=== PATIENT | female | born 1995 | race Caucasian/White ===

== ENCOUNTER → 2022-08-06 | Outpatient (CLI) | payer MEDICAID, SELFPAY ==
[2022-08-06 10:44] LABS: Absolute Lymphocyte Count 1.27 X10^3/uL (0.83-4.51); Absolute Neutrophil Count 7.4 X10^3/uL (2.0-7.7); Basophil# 0.05 X10^3/uL; Basophil% 0.5 % (0-1); Eosinophil# 0.05 X10^3/uL; Eosinophils% 0.5 % (0-5); Hematocrit 38.9 % (37-47); Hemoglobin 13.5 g/dL (12.0-15.0); Lymphocyte # 1.27 X10^3/ul (0.83-4.51); Lymphocyte % 13.5 % (19-41); Mean Corp Hgb Conc 34.7 g/dL (32-36); Mean Corpuscular Hgb 32.1 pg (27.0-32.0); Mean Corpuscular Volume 92.4 fL (81-99); Mean Platelet Vol. 9.6 fl (6.2-12.0); Monocyte# 0.63 X10^3/uL; Monocyte% 6.7 % (0-10); NRBC Flagged by Analyzer 0 % (0-5); Neutrophil # 7.39 X10^3/uL (2.7-7.7); Neutrophil % 78.4 % (47-70); Platelet Count 226 K/mm3 (150-450); RBC Distribution Width CV 13.2 % (11.6-14.6); Red Blood Count 4.21 M/mm3 (4.2-5.4); White Blood Count 9.4 K/mm3 (4.4-11.0)
[2022-08-06 11:34] LABS: NATERA MAILED SPECIMEN
[2022-08-06 12:02] LABS: HIV - WCH Non-Reactive (Nonreactive); Hepatitis B Surface Antigen Non-Reactive (Nonreactive); Hepatitis C Antibody Non-Reactive (Nonreactive); Rubella IgG Reactive (Nonreactive); Syphilis Antibodies Non-reactive
[2022-08-09 06:07] LABS: Chlamydia By Nucleic Acid AMP Negative (Negative)
[2022-08-10 14:21] LABS: Gonococcus By Nucleic Acid AMP Negative (Negative)
[2022-08-14 16:30] LABS: HPV Reflexed? NOT INDICATED
== END | disposition home or self-care (01) ==
PROVIDERS: PCP Family Medicine; Referring Provider Obstetrics & Gynecology; Visit Provider Obstetrics & Gynecology
DX: O09.90 Supervision of high risk pregnancy, unspecified, unspecified trimester (principal)
CPT/HCPCS: 36415; 85025; 86703; 86762; 86780; 86803; 86850; 86900; 86901; 87086; 87088; 87340; 87491; 87591; 88175; G0145

== ENCOUNTER 2022-08-23 12:15 | Emergency (ER) | payer MEDICAID, SELFPAY ==
[2022-08-23 12:16] VITALS: BP 141/74; PULSE 86; RESP 16; TEMP 36.7; O2SAT 100; BMI 28.3
[2022-08-23 12:45] LABS: Absolute Lymphocyte Count 1.39 X10^3/uL (0.83-4.51); Absolute Neutrophil Count 7.6 X10^3/uL (2.0-7.7); Basophil# 0.05 X10^3/uL; Basophil% 0.5 % (0-1); Eosinophil# 0.08 X10^3/uL; Eosinophils% 0.8 % (0-5); Hematocrit 39.8 % (37-47); Hemoglobin 13.2 g/dL (12.0-15.0); Lymphocyte # 1.39 X10^3/ul (0.83-4.51); Lymphocyte % 14.2 % (19-41); Mean Corp Hgb Conc 33.2 g/dL (32-36); Mean Corpuscular Hgb 31.2 pg (27.0-32.0); Mean Corpuscular Volume 94.1 fL (81-99); Mean Platelet Vol. 9.6 fl (6.2-12.0); Monocyte# 0.61 X10^3/uL; Monocyte% 6.2 % (0-10); NRBC Flagged by Analyzer 0 % (0-5); Neutrophil # 7.64 X10^3/uL (2.7-7.7); Neutrophil % 77.8 % (47-70); Platelet Count 218 K/mm3 (150-450); RBC Distribution Width CV 13.2 % (11.6-14.6); RBC Distribution Width SD 45.4 fl (35.1-43.9); Red Blood Count 4.23 M/mm3 (4.2-5.4); White Blood Count 9.8 K/mm3 (4.4-11.0)
[2022-08-23 12:46] LABS: Mucous, Urine 0 SEEN /hpf (<or=2+)
[2022-08-23 12:49] LABS: Color, Urine Yellow (Yellow); Glucose, Dipstick Normal (Normal); Ketone-Dipstick Negative (Negative); Leukocyte Esterase-Dipstick 100 /ul (Negative); Nitrite-Dipstick Negative (Negative); Occult Blood-Urine 150 /ul (Negative); Protein-Dipstick Negative (Negative); Specific Gravity, Urine 1.025 (1.002-1.030); Urine Bilirubin Dipstick Negative (Negative); Urine Clarity Clear (Clear); Urine Urobilinogen Normal (Normal)
[2022-08-23 12:55] LABS: International Normalized Ratio 1.1; Prothrombin Time (Protime)PT. 13.5 SECONDS (11.7-14.9)
[2022-08-23 12:56] LABS: Partial Thromboplast Time 27.6 Seconds (24.1-36.2)
[2022-08-23 13:00] LABS: ALB/GLOB Ratio 0.8 RATIO (0.9-2.4); AST(SGOT) 7 U/L (15-37); Alanine Aminotransfer ALT/SGPT 21 U/L (13-56); Albumin, Serum 3.1 g/dL (3.2-5.0); Alkaline Phosphatase 60 U/L (45-117); Anion Gap 5 (5-15); BUN 9 mg/dL (7-18); BUN/Creat Ratio 13.4 RATIO (10-20); Calcium,Total 8.7 mg/dL (8.5-10.1); Chloride 108 mmol/L (98-107); Creatinine, Serum 0.67 mg/dL (0.55-1.02); EST Glomerular Filtration Rate 113 mL/min (>60); Est Glom Filt Rate - Afr Amer 137 mL/min (>60); Estimated Creatinine Clearance 106.18 ml/min; Globulin 3.7 g/dL (2.2-4.2); Glucose 95 mg/dL (74-106); Potassium 3.6 mmol/L (3.5-5.1); Protein, Total 6.8 g/dL (6.4-8.2); Sodium Level 137 mmol/L (136-145)
[2022-08-23 13:01] LABS: White Blood Cells 0-5 SEEN /hpf (0-5)
[2022-08-23 13:02] LABS: Bacteria 1+ /hpf (None Seen); Red Blood Cells-Urine 0-5 SEEN /hpf (0-5); Squamous Epithelial Cells - UA 0-5 SEEN /hpf (5-10)
--- NOTE | 2022-08-23 13:09 | EDS_ITS ---
HPI HPI - Female History of Present Illness Chief Complaint: Vag Bld, Preg Informant: patient Bleeding Issue: Positive for Vaginal bleeding Onset: Today Context: Sudden Onset Timing: Intermittent Current Severity: Spotting Associated Symptoms Associated Symptoms: Negative for Dysuria, Frequency or Hematuria Test: Positive Narrative Narrative: Patient presents with vaginal bleeding that began again today. Patient states she had an episode 2 days ago and was seen at another emergency department at that time. Patient states she had an ultrasound at that time which showed good heart movement and no evidence of bleeding. Patient was given an injection of RhoGAM at that time. Patient states her bleeding stopped yesterday and then started again today. Patient states it is mild. Patient states she noticed it when she wiped after going to the bathroom. Patient states it is light pink. Patient denies any brown discharge. Patient denies any cramping or pelvic pain. Patient denies any passing of clots or tissue. [facility] Medical History Closed fracture of 5th metacarpal Allergy/AdvReac Type Severity Reaction Status Date / Time amoxicillin Allergy Intermediate Hives Verified 08/23/22 12:18 sulfamethoxazole Allergy Intermediate Hives Verified 08/23/22 12:18 [From Bactrim] trimethoprim [From Bactrim] Allergy Intermediate Hives Verified 08/23/22 12:18 Family History Brother History of hypoplastic left heart syndrome Surgical History H/O hand surgery Social History adopted: No household members: significant other and children housing: house number of children: 1 current occupational status: unemployed pets and animals: Yes (not managing litter box) pets and animals: cat(s), fish, hamster(s) and turtle(s) history of recent travel: No sexually active: Yes Smoking Status: Former smoker quit date: 06/08/22 Tobacco: How many years used: 5 quit status: quit date established counseling given: provider counseling alcohol intake: never substance use type: does not use well-balanced diet: about half the time caffeine: No eating out: 1-3 times/week during the past year weight has: remained stable what type of physical activity do you participate in: none abraham/anabaptism: Tenriism seatbelt use: always do you feel safe at home: Yes additional social history: BF Zaheer- Construction ROS ROS ED Constitutional Constitutional ED: Denies chills or fever(s) Eyes Eyes: Denies blurry vision or change in vision ENT ENT ED: Denies rhinorrhea or sore throat Cardiovascular Cardiovascular: Denies chest pain or palpitations Respiratory/Chest Respiratory/Chest: Denies cough or dyspnea Gastrointestinal Gastrointestinal: Denies nausea or vomiting Genitourinary Genitourinary ED: Denies dysuria or hematuria Musculoskeletal Musculoskeletal: Denies back pain or neck pain Integumentary Denies abscess or rash Neurologic Neurologic: Reports headache(s); Denies weakness Allergic/Immunologic Allergic/Immunologic ED: Denies mouth swelling or urticaria EXAM Physical Exam Const Vital Signs: 08/23/22 12:16 Temperature 98.0 F Temperature Source Temporal Pulse Rate 86 Respiratory Rate 16 Blood Pressure 141/74 H Blood Pressure Mean 96 Pulse Ox 100 Oxygen Delivery Method Room Air Positive well nourished and well developed General Appearance ED: well developed HEENT Reports moist mucous membranes Neck supple and no JVD Resp normal respiratory effort and clear to auscultation bilaterally Cardio regular rate, regular rhythm and no murmurs GI normal to inspection, nondistended, normoactive bowel sounds and non-tender Palpation: soft Extremity normal to inspection General Extremety ED: Negative for edema or tenderness General Extremity: Negative for edema Neuro oriented x3, CN's II-XII intact bilaterally and no sensory deficits noted Sensorium / Orientation: alert Motor Exam: strength 5/5 throughout Psych mental status grossly normal Skin no rashes or lesions noted MDM MDM MDM Narrative Medical decision making narrative: CBC was within normal limits. PT was INR and PTT were within normal limits. Comprehensive metabolic profile was within normal limits. Quantitative hCG was 21,934. Urinalysis does not show any evidence of urinary tract infection or hematuria. Xycyq-da-frbf ultrasound was performed by myself. There is good heart motion. There is a single intrauterine . Patient was able to see the heart motion and felt better. Patient was instructed to have complete pelvic rest. Patient was instructed to follow-up with her LEGAL RECORDS CLERK in 2 to 3 days. Patient understood and was agreeable with the plan. All questions were answered. Lab Data Attestation: I reviewed the patient's lab results. Labs: Laboratory Results - last 24 hr 08/23/22 08/23/22 08/23/22 12:35 12:35 12:35 WBC 9.8 RBC 4.23 Hgb 13.2 Hct 39.8 MCV 94.1 MCH 31.2 MCHC 33.2 RDW Std Deviation 45.4 H RDW Coeff of Jolene 13.2 Plt Count 218 MPV 9.6 Immature Gran % (Auto) 0.500 Neut % (Auto) 77.8 H Lymph % (Auto) 14.2 L Smith % (Auto) 6.2 Eos % (Auto) 0.8 Baso % (Auto) 0.5 Absolute Neuts (auto) 7.6 Absolute Lymphs (auto) 1.39 Nucleated RBC % 0 PT 13.5 INR 1.1 APTT 27.6 Sodium 137 Potassium 3.6 Chloride 108 H Carbon Dioxide 24.0 Anion Gap 5 BUN 9 Creatinine 0.67 Estim Creat Clear Calc 106.18 Est GFR (MDRD) Af Amer 137 Est GFR (MDRD) Non-Af 113 BUN/Creatinine Ratio 13.4 Glucose 95 Calcium 8.7 Total Bilirubin 0.20 AST 7 L ALT 21 Alkaline Phosphatase 60 Total Protein 6.8 Albumin 3.1 L Globulin 3.7 Albumin/Globulin Ratio 0.8 L HCG, Quant Urine Color Urine Clarity Urine pH Ur Specific [place] Urine Protein Urine Glucose (UA) Urine Ketones Urine Occult Blood Urine Nitrite Urine Bilirubin Urine Urobilinogen Ur Leukocyte Esterase Urine RBC Urine WBC Ur Squamous Epith Cells Urine Bacteria Urine Mucus 08/23/22 08/23/22 12:35 12:40 WBC RBC Hgb Hct MCV MCH MCHC RDW Std Deviation RDW Coeff of Jolene Plt Count MPV Immature Gran % (Auto) Neut % (Auto) Lymph % (Auto) Smith % (Auto) Eos % (Auto) Baso % (Auto) Absolute Neuts (auto) Absolute Lymphs (auto) Nucleated RBC % PT INR APTT Sodium Potassium Chloride Carbon Dioxide Anion Gap BUN Creatinine Estim Creat Clear Calc Est GFR (MDRD) Af Amer Est GFR (MDRD) Non-Af BUN/Creatinine Ratio Glucose Calcium Total Bilirubin AST ALT Alkaline Phosphatase Total Protein Albumin Globulin Albumin/Globulin Ratio HCG, Quant 74975 H Urine Color Yellow Urine Clarity Clear Urine pH 5.0 Ur Specific [place] 1.025 Urine Protein Negative Urine Glucose (UA) Normal Urine Ketones Negative Urine Occult Blood 150 H Urine Nitrite Negative Urine Bilirubin Negative Urine Urobilinogen Normal Ur Leukocyte Esterase 100 H Urine RBC 0-5 SEEN Urine WBC 0-5 SEEN Ur Squamous Epith Cells 0-5 SEEN Urine Bacteria 1+ Urine Mucus 0 SEEN Discharge Plan Triage Chief Complaint: Vag Bld, Preg ED Provider: Tom Benitez Dx/Rx/DC Orders Clinical Impression: Threatened miscarriage, Rh negative state in antepartum period Instructions: ED Possible Miscarriage ... Primary Care Provider: Harper Davenport Referrals: Teetee Martins DO [Med Staff - Active Staff] - 3-5 Days Harper Davenport MD [Primary Care Provider] - Activity Restrictions/Additional Instructions: Abstain from sexual intercourse. Do not use any tampons. You need to have complete pelvic rest. Follow-up with your LEGAL RECORDS CLERK in 2 to 3 days. Return if any cramping, passing clots, passing tissue, or severe pain, or worse in any way. Disposition Disposition: Home, Self Care
== END 2022-08-23 13:52 | disposition home or self-care (01) ==
PROVIDERS: Emergency Provider Emergency Medicine; PCP Family Medicine; Visit Provider Emergency Medicine
DX: O20.0 Threatened abortion (principal); N93.9 Abnormal uterine and vaginal bleeding, unspecified; R51.9 Headache, unspecified; Z87.891 Personal history of nicotine dependence; O26.899 Other specified pregnancy related conditions, unspecified trimester; O99.891 Other specified diseases and conditions complicating pregnancy
CPT/HCPCS: 80053; 81001; 84702; 85025; 85610; 85730; 99284

== ENCOUNTER → 2022-09-01 | Outpatient (CLI) | payer MEDICAID, SELFPAY | END | disposition home or self-care (01) | PROVIDERS: PCP Family Medicine; Referring Provider Registered Nurse; Visit Provider Registered Nurse | DX: Z36.9 Encounter for antenatal screening, unspecified (principal) | CPT/HCPCS: 36415 ==

== ENCOUNTER → 2022-09-29 | Outpatient (CLI) | payer MEDICAID, SELFPAY | END | disposition home or self-care (01) | PROVIDERS: PCP Family Medicine; Referring Provider Registered Nurse; Visit Provider Registered Nurse | DX: Z34.90 Encounter for supervision of normal pregnancy, unspecified, unspecified trimester (principal) | CPT/HCPCS: 36415 ==

== ENCOUNTER → 2022-10-13 | Outpatient (CLI) | payer MEDICAID, SELFPAY ==
--- NOTE | 2022-10-13 12:29 | US_ITS ---
INDICATION: anatomy scan EXAMINATION: Ultrasound US OB Complete W/ Detail single or first gestation TECHNIQUE: Transabdominal pelvic ultrasound was performed. COMPARISON: None. LMP: Unknown. Beta-hCG: Unknown. Provided EGA: None. FINDINGS: INTRAUTERINE GESTATION(s): Single. ESTIMATED GESTATIONAL AGE: 19 weeks 5 days ESTIMATED DUE DATE (MALENA): 20 weeks 2 days HEART MOTION is 134 bpm. Largest amniotic fluid pocket 3.4 x 3.3 cm. ESTIMATED WEIGHT: 3 28 g Percentile 31.54%. BIOPHYSICAL PROFILE (BPP): Not assessed. PRESENTATION: Cephalic PLACENTA: Anterior. Low-lying placenta. CERVIX: The cervix is closed. MATERNAL OVARIES: No adnexal masses. FREE FLUID: None. US/OB Anatomy Scan IMPRESSION: Single live intrauterine of 19 weeks 5 days. Low-lying placenta with placental margin 0.65 cm from the internal cervical os. A follow-up ultrasound is advised to assess are normal placenta migration away from the internal cervical os if clinically warranted. No acute abnormality. Electronically Signed: Manjit Valdez MD, ROMANA at 16:48 EST ,
== END | disposition home or self-care (01) ==
LOC: OPUS 12:28
PROVIDERS: PCP Family Medicine; Visit Provider Obstetrics & Gynecology
DX: Z34.90 Encounter for supervision of normal pregnancy, unspecified, unspecified trimester (principal); Z87.51 Personal history of pre-term labor; Z3A.14 14 weeks gestation of pregnancy
CPT/HCPCS: 76805; 76817

== ENCOUNTER → 2022-12-08 | Outpatient (CLI) | payer MEDICAID, SELFPAY ==
--- NOTE | 2022-12-08 09:25 | US_ITS ---
STUDY: SECOND AND THIRD TRIMESTER OBSTETRICAL ULTRASOUND - LIMITED REASON FOR EXAM: Female, 27 years old placental location LMP: 05/24/2022 PRIOR ULTRASOUND: 10/13/2022 TECHNIQUE: Transabdominal TECHNICAL QUALITY: Adequate. FINDINGS: There is a single intrauterine fetus. There is demonstrated cardiac activity with a heart rate of 144 bpm. There is a normal amniotic fluid volume. The largest amniotic fluid pocket measures 3.8 cm. The amniotic fluid index (CHELA) is 12.9 cm. The placenta is posterior in location and is not low lying. There are Grade 0 placental changes. The cervix measures 5.1 cm in length. Age by LMP: 28 weeks, 2 days. MALENA by LMP: 02/28/2023. US/OB Limited (No Biometrics) IMPRESSION: Single live intrauterine with heart rate of 144 bpm. Placental location is posterior, not low lying Electronically Signed: Elfego Guaman MD at 10:43 EDT ,
[2022-12-08 11:49] LABS: Absolute Lymphocyte Count 1.21 X10^3/uL (0.83-4.51); Absolute Neutrophil Count 8.4 X10^3/uL (2.0-7.7); Basophil# 0.05 X10^3/uL; Basophil% 0.5 % (0-1); Eosinophil# 0.05 X10^3/uL; Eosinophils% 0.5 % (0-5); Hematocrit 35.5 % (37-47); Hemoglobin 11.7 g/dL (12.0-15.0); Lymphocyte # 1.21 X10^3/ul (0.83-4.51); Lymphocyte % 11.5 % (19-41); Mean Corpuscular Hgb 30.6 pg (27.0-32.0); Mean Corpuscular Volume 92.9 fL (81-99); Mean Platelet Vol. 9.7 fl (6.2-12.0); Monocyte# 0.64 X10^3/uL; Monocyte% 6.1 % (0-10); NRBC Flagged by Analyzer 0 % (0-5); Neutrophil # 8.42 X10^3/uL (2.7-7.7); Neutrophil % 80.4 % (47-70); Platelet Count 231 K/mm3 (150-450); RBC Distribution Width CV 13.1 % (11.6-14.6); RBC Distribution Width SD 44.9 fl (35.1-43.9); Red Blood Count 3.82 M/mm3 (4.2-5.4); White Blood Count 10.5 K/mm3 (4.4-11.0)
[2022-12-08 11:51] LABS: Glucose Challenge Gest 1H 50g 112 mg/dL (70-140)
[2022-12-08 12:39] LABS: HIV - WCH Non-Reactive (Nonreactive); Syphilis Antibodies Non-reactive
== END | disposition home or self-care (01) ==
PROVIDERS: PCP Family Medicine; Referring Provider Nurse Practitioner Women's Health; Visit Provider Nurse Practitioner Women's Health
DX: Z34.90 Encounter for supervision of normal pregnancy, unspecified, unspecified trimester (principal)
CPT/HCPCS: 36415; 76815; 82950; 85025; 86703; 86780; 86900; 86901

== ENCOUNTER → 2023-02-02 | Outpatient (CLI) | payer MEDICAID, SELFPAY | END | disposition home or self-care (01) | LOC: LABSPEC 11:25 | PROVIDERS: PCP Family Medicine; Referring Provider Registered Nurse; Visit Provider Registered Nurse | DX: O09.90 Supervision of high risk pregnancy, unspecified, unspecified trimester (principal); Z3A.00 Weeks of gestation of pregnancy not specified | CPT/HCPCS: 87077; 87081; 87186 ==

== ENCOUNTER 2023-02-12 07:45 | Outpatient (CLI) | payer MEDICAID, SELFPAY ==
[2023-02-12 08:04] VITALS: BP 123/74; PULSE 81; PULSE 85; O2SAT 99
[2023-02-12 08:09] VITALS: BMI 16.8
--- NOTE | 2023-02-13 16:41 | OB.TRI.PN_ITS ---
Progress Notes Date of Service: 02/12/23
--- NOTE | 2023-02-13 16:41 | OB.TRI.PN ---
Progress Notes Date of Service: 02/12/23
--- NOTE | 2023-02-13 16:42 | OB.TRI.PN ---
Progress Notes Date of Service: 02/12/23 Progress Note: seen and admitted in labor
== END 2023-02-12 10:40 | disposition home or self-care (01) ==
LOC: WPOUT 07:51 → WP 07:52
PROVIDERS: PCP Family Medicine; Referring Provider Obstetrics & Gynecology; Visit Provider Obstetrics & Gynecology
DX: Z34.83 Encounter for supervision of other normal pregnancy, third trimester (principal)
CPT/HCPCS: 59025; 59050 ×2

== ENCOUNTER 2023-02-13 01:05 | Inpatient (IN) | payer MEDICAID, SELFPAY ==
[2023-02-13] VITALS (31 sets, daily range): BP systolic 106–146; BP diastolic 51–78; PULSE 71–101; RESP 14–18; TEMP 36.3–37.7; O2SAT 93–100; BMI 37.2
[2023-02-13] MEDS: LACTATED RINGERS 500 ML 999 ML IV (01:15)
[2023-02-13 01:43] LABS: Absolute Lymphocyte Count 1.25 X10^3/uL (0.83-4.51); Absolute Neutrophil Count 11.7 X10^3/uL (2.0-7.7); Basophil# 0.04 X10^3/uL; Basophil% 0.3 % (0-1); Eosinophil# 0.04 X10^3/uL; Eosinophils% 0.3 % (0-5); Hematocrit 33.6 % (37-47); Lymphocyte # 1.25 X10^3/ul (0.83-4.51); Mean Corp Hgb Conc 32.7 g/dL (32-36); Mean Corpuscular Hgb 28.7 pg (27.0-32.0); Mean Corpuscular Volume 87.7 fL (81-99); Mean Platelet Vol. 10.3 fl (6.2-12.0); Monocyte# 0.76 X10^3/uL; Monocyte% 5.5 % (0-10); NRBC Flagged by Analyzer 0 % (0-5); Neutrophil # 11.68 X10^3/uL (2.7-7.7); Neutrophil % 84.2 % (47-70); Platelet Count 251 K/mm3 (150-450); RBC Distribution Width CV 13.8 % (11.6-14.6); Red Blood Count 3.83 M/mm3 (4.2-5.4); White Blood Count 13.9 K/mm3 (4.4-11.0)
--- NOTE | 2023-02-13 01:55 | HP.PCM.OB_ITS ---
HPI - General General Date of Admission: 02/13/23 HPI Narrative VICKI KENNEDY, is a 27 F who presents IAL 5-6 cm regular ctx no vb lof admits good fm Maternal Data Information MALENA Calculator Estimated Delivery Date Method Current WG Current Estimate 02/28/23 Ultrasound #1 37w 6d Other Estimates 03/08/23 LMP (Certain) 36w 5d PFSH PFSH Medical History Closed fracture of 5th metacarpal Home Medications prenat.vits,florencia,ipz-acex-wswke 1 tab PO DAILY 09/29/22 [History Last Taken 02/11/23 08:00] ferrous sulfate 325 mg (65 mg iron) tablet (Feosol) 325 mg PO DAILY 01/05/23 [History Last Taken 02/11/23 08:00] magnesium citrate 125 mg capsule 125 mg PO DAILY 01/05/23 [History Last Taken 02/11/23 08:00] zinc sulfate 50 mg zinc (220 mg) capsule 50 mg PO DAILY 01/05/23 [History Last Taken 02/11/23 08:00] fluticasone propionate 50 mcg/actuation nasal spray,suspension (Flonase Allergy Relief) 2 spray intranasal BID #16 grams 02/11/23 [Rx Last Taken Unknown] Benadryl 50 mg PO/SL PRN PRN Congestion 02/12/23 [History Last Taken 02/11/23 21:00] acetaminophen 325 mg capsule (Tylenol) 650 mg PO Q4H PRN Headache 02/12/23 [History Last Taken 02/09/23 08:00] Allergy/AdvReac Type Severity Reaction Status Date / Time amoxicillin Allergy Intermediate Hives Verified 02/12/23 08:10 sulfamethoxazole Allergy Intermediate Hives Verified 02/12/23 08:10 [From Bactrim] trimethoprim [From Bactrim] Allergy Intermediate Hives Verified 02/12/23 08:10 Family History Brother History of hypoplastic left heart syndrome Surgical History H/O hand surgery Social History adopted: No household members: significant other and children housing: house number of children: 1 current occupational status: unemployed pets and animals: Yes (not managing litter box) pets and animals: cat(s), fish, hamster(s) and turtle(s) history of recent travel: No sexually active: Yes Smoking Status: Former smoker quit date: 06/08/22 Tobacco: How many years used: 5 quit status: quit date established counseling given: provider counseling alcohol intake: never substance use type: does not use well-balanced diet: about half the time caffeine: No eating out: 1-3 times/week during the past year weight has: remained stable what type of physical activity do you participate in: none abraham/amish: Pentecostalism seatbelt use: always do you feel safe at home: Yes additional social history: BF Zaheer- Construction History 2 Elective abortions Hx Para 1 Spontaneous abortions Hx # Term Pregnancies Ectopic pregnancies Hx # Pregnancies Multiple births # of living children 1 Past Pregnancies Del. Date Name GA/Weeks Outcome Route Bth Weight Gen Labor Lgth Anesthesia Del [facility] Provider FOB 08/26/16 Carleen 36 live - 5#6oz Male 16 hours epidural [place] Peter Gallojef Delivery Date: 08/26/16 Last Updated by: Emily Armenta on bedrest at 20 weeks due to thinning cervix Visit Details Expected Delivery Route/Plan Labor Preferences- CB/BF classes: no labor support person: [place] labor intervention preferences: [] pain management options preferred: epidural cut cord/dad catch: yes : yes PP control planned: mirena IUD discussed possible routes of delivery and associated risks: [] special requests: [] Plans Covid status: discussed Flu vaccine: reviewed and declines Tdap vaccine: given Rhogam: 28 weeks, PRN, PP LARC form signed: yes movement and labor precautions reviewed. Problem list reviewed and updated with the most current plan of care details and appropriate orders placed. Relevant counseling for the gestational age provided. Continue routine care and follow up unless otherwise noted in visit notes/problem list details OB Flowsheet Initial Weight: Not Recorded Date -?-?-?-?-?-?-?-?-?-?-?-?- EGA Weight BP Urine Prot -?-?-?-?-?-?-?-?-?-?-?-?- Glucose FHR FuHt Pres Dilation -?-?-?-?-?-?-?-?-?-?-?-?- Effaced St Visit Note 08/06/22 -?-?-?-?-?-?-?-?-?-?-?-?- 10w 4d 166 lb 4 oz 115/73 -?-?-?-?-?-?-?-?-?-?-?-?- 170 -?-?--?-?-?-?-?-?-?-?-?-?- JV- single live IUP not consistent with LMP. Measuring 10 weeks 4 days. JV- single live IUP not cons istent with LMP. Measuring 10 weeks 4 days. wants genetic screening 09/01/22 -?-?-?-?-?-?-?-?-?-?-?-?- 14w 2d 171 lb 2 oz 129/76 Nega tive -?-?-?-?-?-?-?-?-?-?-?-?- Negative 150 -?-?-?-?-?-?-?-?-?-?-?-?- LC- no vb/crampi ng. doing well. getting over a cold. reviewed and accepts AFP to complete after 15 weeks. 09/29/22 -?-?-?-?-?-?-?-?-?-?-?-?- 18w 2d 174 lb 118/72 Negative -?-?-?-?-?-?-?-?-?-?-?-?- Negative 147 -?-?-?-?-?-?-?-?-?-?-?-?- MH-No VB lof. Or annie for [facility] US sent. AFP today 10/28/22 -?--?-?-?-?-?-?-?-?-?-?-?- 22w 3d 180 lb 4 oz 134/87 Nega tive -?-?-?-?-?-?-?-?-?-?-?-?- Negative 145 -?-?-?-?-?-?-?-?-?-?-?-?- JV- no lof, vagi nal bleeding, or cramping. 11/24/22 -?-?-?-?-?-?-?-?-?-?-?-?- 26w 2d 186 lb 110/66 Negative -?-?-?-?-?-?-?-?-?-?-?-?- Negative 149 26 -?-?-?-?-?-?-?-?-?-?-?-?- MH-No VB, LOF. G ood FM. Doing well 12/08/22 -?-?-?-?-?-?-?-?-?-?-?-?- 28w 2d 190 lb 8 oz 122/80 Nega tive -?-?-?-?-?-?-?-?-?-?-?-?- Negative 148 28 -?-?-?-?-?-?-?-?-?-?-?-?- MH-No Vb, LOF. G ood FM. Just completed US to recheck placenta. Will have labs drawn then come back to office for rhogam. Tdap given. 12/24/22 -?-?-?-?-?-?-?-?-?-?-?-?- 30w 4d 196 lb 6 oz 135/81 Nega tive -?-?-?-?-?-?-?-?-?-?-?-?- Negative 140 30 -?-?-?--?-?-?-?-?-?-?-?-?- LC- no vb/ctx/lo f. good fm. having strong desire to smell dirt.discussed pica. 01/05/23 -?-?-?-?-?-?-?-?-?-?-?-?- 32w 2d 200 lb 6 oz 109/79 Nega tive -?-?-?-?-?-?-?-?-?-?-?-?- Negative 140 33 -?-?-?-?-?-?-?-?-?-?-?-?- Sm- no vb lof go od fm no regular ctx 05/31/23 -?-?-?-?-?-?-?-?-?-?-?-?- 34w 4d 206 lb 2 oz 114/72 Nega tive -?-?-?-?-?-?-?-?-?-?-?-?- Negative 137 35 -?-?-?-?-?-?-?-?-?-?-?-?- JV- no lof, vagi nal bleeding, or dec fm. no complaints. 02/02/23 -?-?-?-?-?-?-?-?-?-?-?-?- 36w 2d 211 lb 6 oz 118/66 -?-?-?-?-?-?-?-?-?-?-?-?- 140 36 1 -?-?-?-?-?-?--?-?-?-?-?-?- 40 -3 LC- no lof /vb/ctx. good fm. GBS collected. 02/11/23 -?-?-?-?-?-?-?-?-?-?-?-?- 37w 4d 209 lb 6 oz 116/80 Nega tive -?-?-?-?-?-?-?-?-?-?-?-?- Negative 144 37 4 -?-?-?-?-?-?-?-?-?-?-?-?- 80 -2 JV- patien t has a cold today and wearing a mask. no sob or chest pressure. had body aches last week. will try flonase 02/13/23 -?-?-?-?-?-?-?-?-?-?-?-?- 37w 6d 210 lb -?-?-?-?-?-?-?-?-?-?-?-?- -?-?-?-?-?-?-?-?-?-?-?-?- NST FHR Rate Baby A Baseline: 130 Variability:: Moderate Accelerations:: 15 x 15 Decelerations:: Variable NST Reactive:: Yes FHR Category:: Category II Uterine Activity:: q3-5 ROS Constitutional Constitutional: Reports systems reviewed and no addt'l complaints, except as documented ENT HEENT: Reports systems reviewed and no addt'l complaints, except as documented Cardiovascular Cardiovascular: Reports systems reviewed and no addt'l complaints, except as documented Respiratory/Chest Respiratory/Chest: Reports systems reviewed and no addt'l complaints, except as documented Gastrointestinal Gastrointestinal: Reports systems reviewed and no addt'l complaints, except as documented and nausea; Denies abdominal pain Genitourinary Genitourinary: Reports systems reviewed and no addt'l complaints, except as documented, contractions Details: present and frequency (regular ) and movement Details: present Musculoskeletal Musculoskeletal: Reports systems reviewed and no addt'l complaints, except as documented Integumentary Integumentary: Reports as per HPI Neurologic Neurologic: Reports systems reviewed and no addt'l complaints, except as documented Endocrine Endocrinology: Reports systems reviewed and no addt'l complaints, except as documented Vital Signs Vital Signs Vital Signs: Weight Weight: 210 lb Body Mass Index (BMI) 37.2 Physical Exam Const alert, oriented x3 and healthy appearing Constitutional Narrative: uncomfortable with contractions HEENT normocephalic and moist oral mucous membranes Head and Scalp: atraumatic Neck full ROM, no lymphadenopathy, supple and thyroid normal General: trachea midline Thyroid: thyroid normal Lymph Lymphatic: no lymphadenopathy noted Chest inspection of chest normal Resp normal respiratory effort Cardio regular rate GI normal to inspection, nondistended, normoactive bowel sounds, soft to palpation and non-tender Inspection: gravid external exam normal Bimanual Exam - Vag & Uterus: uterus non-tender Manual OB Exam: estimated gestational size appropriate, presentation cephalic, dilated, effaced and station Extremity normal to inspection General Extremity: Negative for edema Skin no rashes or lesions noted Neuro deep tendon reflexes 2+ bilaterally Motor Exam: strength 5/5 throughout and clonus absent Psych mental status grossly normal Labs Labs Labs: Blood Type O NEGATIVE Antibody Screen NEGATIVE Hct 33.6 % (37-47) L Hgb 11.0 g/dL (12.0-15.0) L Obstetrics US Syphilis Total Ab Non-reactive Rubella IgG Antibody Reactive (Nonreactive) Hep Bs Antigen Non-Reactive (Nonreactive) Chlamydia DNA (JOSE) Negative (Negative) Neisseria gonorrhoeae DNA (JOSE) Negative (Negative) HIV 1&2 Antibody Non-Reactive (Nonreactive) Glucose 1 Hr 50 gm 112 mg/dL (70-140) Miscellaneous Test Assessment & Plan (1) : QUALIFIERS: Weeks of gestation: 37 weeks Qualified Code(s): Z3A.37 - 37 weeks gestation of COMMENT: NIPT low risk, carrier neg. . afp negative nl anatomy (2) Supervision of high risk , antepartum: COMMENT: PRR , MALENA 03/08/23, Meg pope, ISHMAEL Schwab (3) Depression: COMMENT: in counseling;stable. no meds (4) Rh negative state in antepartum period: COMMENT: Rhogam @ 28 weeks & PRN spotting/bleeding (5) Positive GBS test: COMMENT: treat in labor (6) Active labor at term: PLAN: Plan Patient presents IAL, plan expectant management for , pitocin/AROM PRN if needed. Pain management: plans epidural. GBS positive plan IV vancomycin. Management of any complications: none I have reviewed the [facility] and made any clinically relevant updates.
[2023-02-13] MEDS: Lactated Ringers 1,000 ML 200 ML IV (02:07)
[2023-02-13] MEDS: fentaNYL-bupivacaine (epidural) 100 ML BAG EPIDURAL (02:08)
[2023-02-13] MEDS: Amnioinfusion- 0.9% NS 1,000 ML IV.SOLN. INTRA-UTER (02:59)
[2023-02-13] MEDS: Oxytocin 15 Units/NS 250ml 15 UNITS/250 ML IV.SOLN 83 UNITS IV (02:59)
[2023-02-13 03:23] LABS: Syphilis Antibodies Non-reactive
[2023-02-13] MEDS: Oxytocin 10 UNITS/ML Vial IM (04:08)
--- NOTE | 2023-02-13 07:06 | EX.PCM.OBRPT ---
Assessment & Plan (1) Active labor at term: (2) Positive GBS test: COMMENT: treat in labor (3) Rh negative state in antepartum period: COMMENT: Rhogam @ 28 weeks & PRN spotting/bleeding (4) Depression: COMMENT: in counseling;stable. no meds (5) Supervision of high risk , antepartum: COMMENT: PRR , MALENA 03/08/23, boy, Meg PC Eastyn, BF Zaheer (6) : QUALIFIERS: Weeks of gestation: 37 weeks Qualified Code(s): Z3A.37 - 37 weeks gestation of COMMENT: NIPT low risk, carrier neg. . afp negative nl anatomy (7) Vaginal delivery: COMMENT: SM IAL nkio Weaver 37 Maternal Data Information MALENA Calculator Estimated Delivery Date Method Current WG Current Estimate 02/28/23 Ultrasound #1 37w 6d Other Estimates 03/08/23 LMP (Certain) 36w 5d Vaginal Delivery Operative Information Date of Procedure: 02/13/23 Pre-Operative Diagnosis: see a/p diagnoses Post-Operative Diagnosis: same Surgery / Procedure Performed: Spontaneous Vaginal Delivery Type of Anesthesia: Epidural Special Medications: none Estimated Blood Loss: 200 Fluids Replaced: crystalloid Findings Description of Procedure: Patient began pushing and delivered the head in the AMARIS presentation. The head was delivered atraumatically . The anterior and posterior shoulders delivered without complication followed by the rest of the and the was placed on the maternal abdomen. Delayed cord clamping was employed for approximately 60 seconds. Cord was clamped and cut and gentle traction was applied to the cord and the placenta delivered spontaneously immediately following it was noted to be intact with three-vessel cord. The perineum and vagina were inspected and noted to have no laceration. EBL was 200 cc. Patient and infant tolerated delivery well. Amniotic Fluid Description: Clear Placental Delivery Description: Spontaneous Placenta Disposition: [facility] Cord Vessel Description: 3 Vessels Cord Entanglement: None Delayed Cord Clamping: Yes Post Vaginal Delivery Medications Given After Delivery: - (Pitocin) Episiotomy Description: None Complication Complications: None Procedures Urinary/Genital [id number]: [id number] Vaginal Delivery+PP Care([facility])
--- NOTE | 2023-02-13 07:08 | DCINST_ITS ---
Discharge Instructions Diet Discharge Diet: No restrictions Activity Discharge Activity: Return to Normal Activity, May Drive, May Shower and May Take a Tub Bath (in 4 weeks) May resume sexual activity in: 6-8 weeks (after seen by OB provider) Weight Bearing Status: Full weight bearing Lifting Restrictions: none Dressing / Incision Call your doctor if you observe: Fever of 101 or Higher, Inability to urinate, Using more than 1 pad per hour (for more than 2 hours in a row or more), Shortness of breath, Dizziness, Chest pain and - (headache not controlled with tylenol, change in vision) Follow Up Care When: in 6 weeks for visit, call the office to make the appointment. If you had elevated blood pressures call the office to be seen within 1 week. Test Results: Test results from this visit will be discussed in further detail at your follow- up appointment, if applicable. Discharge Plan Admission Admit Date/Time: 02/13/23 01:05 Attending Provider: Allison Moser Primary Care Provider: Harper Davenport Discharge Orders/Prescriptions Prescriptions: No Action prenat.vits,florencia,cgl-ovis-fjdhv Tablet 1 tab PO DAILY ferrous sulfate [Feosol] 325 mg (65 mg iron) tablet 325 mg PO DAILY magnesium citrate 125 mg capsule 125 mg PO DAILY zinc sulfate 50 mg zinc (220 mg) capsule 50 mg PO DAILY fluticasone propionate [Flonase Allergy Relief] 50 mcg/actuation sp ray,suspension 2 spray intranasal BID Qty: 16 3RF Rx Instructions: administer into each nostril acetaminophen [Tylenol] 325 mg Capsule 650 mg PO Q4H PRN (Reason: Headache) Benadryl 50 mg PO/SL PRN PRN (Reason: Congestion) Referrals / Follow Up: Harper Davenport MD [Primary Care Provider] -
[2023-02-13] MEDS: Senna/Docusate Sodium 1 Tablet PO (08:07)
[2023-02-13] MEDS: Acetaminophen 500 MG Tablet 1000 MG PO ×2 (08:08→20:07)
--- NOTE | 2023-02-13 17:06 | CASEMGMT ---
Social Work Assessment Labor and Delivery Unit Patient Address: [address] [place] [address] Phone number: [phone] Date of Referral: 02/13/23 Time of Referral:? 0130 Referred By: Allison Moser Date of Intervention: ??02/13/23 Time of Intervention:? 1200 Reason for Referral:? Etoh History obtained from: medical records and mother of baby (MOB), Josseline and father of baby (FOB) Zaheer Salas ??? Household composition: Currently residing at family home is MOB, FOB, older brother Carleen (08/26/2016) and baby boy Meg. Patient's parent/guardian status:? ?MOB reports that parents have been together for 4 years, they cohabitate and are not . FOB is involved, was presnet for delivery and is also assisting in raising Carleen. Baby is first child to FOB and second to MOB. MOB reports that the father of her older son is not involved, he has not seen him in over 4 years. MOB asked how TORSTEN could legally change her other son's name to his last name. Sw informed ANA that she will need to go to [facility] and start that process. Medical History: This is MOB second / delivery. ANA received routine care with [facility] throughout her . ANA delivered baby boy on 02/13/23 who weighed 2935 grams and apgars were 8 at one minute and 9 at five minutes. ANA reports that she is working on . The baby will go to Dr[facility] Ford at [facility]. ? Educational Status:?MOB reports that she did not finish high school, she completed 11th grade. MOB reports that she got and had superemesis which caused her to lose a lot of weight and she did not finish school. TORSTEN graduated from high school, no college education. Financial Status: ANA is unemployed, she is a stay at home mom. 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 Supplies: Parents report they have obtained all necessary baby items including a car seat, safe sleep space, clothes, diapers and wipes. Childcare/Caregiver(s):? MOB and FOB will be primary caregiver to baby. Transportation:?? Both parents have their drivers license and have reliable transportation. No transportation barriers at this time. Programs/Agencies Involved: ???ANA is receiving food stamps, and has [employer] insurance. MOB also looking into getting connected to WIC. Children Services/Legal Issues:??? MOB denies prior involvement, no concerns warranting referrals at this time. Behavioral Health Issues: ??Mental Health History: TORSTEN denies mental health history. ANA states that she has been diagnosed with anxiety and depression. Sw provided education on baby blues and post depression to parents. Sw provided literature for parents to review. Sw asked TORSTEN to leave room so MOB could complete [place] Depression Scale. ANA scored 6. ANA stated that she is already connected to counseling supports at [facility] in [place]. ANA states that she sees her counselor every other . ANA stated that she does not prefer to start medication, but acknowledges that if she were to experience baby blues or post depression that she is not against medication if that would help her mental health. MOB states that she is safe at home, denies abuse/ domestic violence. MOB states that FOLisa is a big support for her. ?? Substance Use History:??MOB denies substance use. Family History:??MOB indicated that a parent has an addiction. ??? Drug Screens: ?drug screen was negative. Family/Social Stressors:? MOB and FOB deny stressors at this time. Support Systems: ANA states that her mom and her grandma are her biggest support people. TORSTEN said his dad is a support to him. Depression/Shaken Baby/Safe Sleeping: Literature provided to MOB regarding baby blues, depression and depression. MOB expressed appreciation for the information provided. Sw educated parents on shaken baby and ABC's of safe sleep. Parents expressed understanding. ASSESSMENT:? Parents were engaged during assessment. MOB and FOB answered questions together. Parents were receptive of involvement and support. PLAN:? MOB and baby will be discharged when medically ready ?No other services requested or indicated. Mian Martinez, WELDING EQUIPMENT SALES REPRESENTATIVE, SENIOR PROGRAM ANALYST
[2023-02-14 03:54] VITALS: BP 103/42; PULSE 72; RESP 16; TEMP 36.3
[2023-02-14 07:39] VITALS: BP 106/61; PULSE 58; RESP 16; TEMP 36.5; O2SAT 98
--- NOTE | 2023-02-14 08:25 | PN.OBGYN_ITS ---
Subjective Subjective Patient doing well without complaints. Tolerating PO. Ambulating and voiding without difficulty. Feeding well. Denies chest pain, shortness of breath, calf pain/swelling, fevers, chills, lightheadedness. Objective Data Objective Data Vital Signs: Vital Signs Temp Pulse Resp BP Pulse Ox O2 Del Method 97.7 F L 58 L 16 106/61 98 Room Air 02/14/23 07:39 02/14/23 07:39 02/14/23 07:39 02/14/23 07:39 02/14/23 07:39 02/14/23 07:39 Oxygen Delivery Method Room Air Weight: 210 lb Body Mass Index (BMI) 37.2 Intake & Output: Intake and Output for Last 24 Hours 02/12/23 02/13/23 02/14/23 23:59 23:59 23:59 Intake Total 1429.29 / 1429.29 Output Total 1100 / 1100 Balance 329.29 / 329.29 Lab / Micro Data Result Diagrams: 02/13/23 01:15 Labs: Laboratory Results - last 24 hr 02/13/23 16:25: Screen NEGATIVE, Baby's Blood Type A POSITIVE, Baby's OBIE POSITIVE ROS Constitutional Constitutional: Reports systems reviewed and no addt'l complaints, except as documented; Denies anorexia or headache(s) Cardiovascular Cardiovascular: Reports systems reviewed and no addt'l complaints, except as documented; Denies dizziness, dyspnea, nausea or tachypnea Respiratory/Chest Respiratory/Chest: Reports systems reviewed and no addt'l complaints, except as documented; Denies cough, dyspnea, shortness of breath at rest or tachypnea Gastrointestinal Gastrointestinal: Reports systems reviewed and no addt'l complaints, except as documented; Denies abdominal pain, constipation or nausea Genitourinary Genitourinary: Reports systems reviewed and no addt'l complaints, except as documented; Denies burning urination, difficulty urinating, dysuria, urinary marcia quency or urinary incontinence Musculoskeletal Musculoskeletal: Reports systems reviewed and no addt'l complaints, except as documented Integumentary Integumentary: Reports systems reviewed and no addt'l complaints, except as documented Neurologic Neurologic: Reports systems reviewed and no addt'l complaints, except as documented; Denies abnormal speech, dizziness or headache(s) Psychiatric Psychiatric: Reports systems reviewed and no addt'l complaints, except as documented Endocrine Endocrinology: Reports systems reviewed and no addt'l complaints, except as documented Hematologic/Lymphatic Hematologic/Lymphatic: Reports systems reviewed and no addt'l complaints, except as documented Physical Exam Const alert, oriented x3 and no apparent distress Neck full ROM Chest inspection of chest normal and inspection of breasts normal Nipple/Areola: nipples/areola normal Resp normal respiratory effort, normal air movement and no retractions Effort and Inspection: able to speak in complete sentences and symmetric chest movement GI soft to palpation Bladder / Kidney Exam: bladder normal to palpation Uterus Palpation: uterus fundus firm Extremity normal to inspection and full ROM Psych mental status grossly normal, thought process normal and cooperative Assessment & Plan (1) Vaginal delivery: COMMENT: SM IAL niko Weaver 39 PLAN: s/p PPD # 1 1. routine post delivery care 2. breast feeding- support given 3. rh positive 4. rubella immune 5. Discharge Home (2) Positive GBS test: COMMENT: treat in labor (3) Rh negative state in antepartum period: COMMENT: Rhogam @ 28 weeks & PRN spotting/bleeding (4) Depression: COMMENT: in counseling;stable. no meds (5) Supervision of high risk , antepartum: COMMENT: PRR , MALENA 03/08/23, Meg pope BF Zaheer Charges/Coding Multi Select Codes Urinary/Genital Urinary/Genital CPT Codes: No Charge
--- NOTE | 2023-02-14 08:28 | DCINST_ITS ---
Discharge Instructions Diet Discharge Diet: No restrictions Activity May resume sexual activity in: 6-8 weeks (after seen by OB provider) Weight Bearing Status: Full weight bearing Dressing / Incision Call your doctor if you observe: Fever of 101 or Higher, Inability to urinate, Using more than 1 pad per hour (for more than 2 hours in a row or more), Shortness of breath, Dizziness, Chest pain and - (headache not controlled with tylenol, change in vision) Follow Up Care Test Results: Test results from this visit will be discussed in further detail at your follow- up appointment, if applicable. Discharge Plan Admission Admit Date/Time: 02/13/23 01:05 Attending Provider: Allison Moser Primary Care Provider: Harper Davenport Discharge Orders/Prescriptions Prescriptions: No Action prenat.vits,florencia,[id number]-[id number] Tablet 1 tab PO DAILY ferrous sulfate [Feosol] 325 mg (65 mg iron) tablet 325 mg PO DAILY magnesium citrate 125 mg capsule 125 mg PO DAILY zinc sulfate 50 mg zinc (220 mg) capsule 50 mg PO DAILY fluticasone propionate [Flonase Allergy Relief] 50 mcg/actuation spray,suspension 2 spray intranasal BID Qty: 16 3RF Rx Instructions: administer into each nostril acetaminophen [Tylenol] 325 mg Capsule 650 mg PO Q4H PRN (Reason: Headache) Benadryl 50 mg PO/SL PRN PRN (Reason: Congestion) Referrals / Follow Up: Harper Davenport MD [Primary Care Provider] - Disposition Disposition (needs filled in before D/C Order can be placed): Home, Self Care
[2023-02-14 11:54] VITALS: BP 117/74; PULSE 72; RESP 16; TEMP 36.6; O2SAT 98
[2023-02-14 16:00] VITALS: BP 111/66; PULSE 87; RESP 16; TEMP 36.7; O2SAT 98
== END 2023-02-14 18:05 | disposition home or self-care (01) | DRG 560 ==
LOC: WPOUT 01:07 → WP 01:07
PROVIDERS: Admitting Provider Obstetrics & Gynecology; PCP Family Medicine; Referring Provider Obstetrics & Gynecology; Visit Provider Obstetrics & Gynecology
DX: O76 Abnormality in fetal heart rate and rhythm complicating labor and delivery (principal); Z37.0 Single live birth; O99.344 Other mental disorders complicating childbirth; F32.A Depression, unspecified; O99.824 Streptococcus B carrier state complicating childbirth; O26.893 Other specified pregnancy related conditions, third trimester; Z67.41 Type O blood, Rh negative; Z3A.37 37 weeks gestation of pregnancy; Z87.59 Personal history of other complications of pregnancy, childbirth and the puerperium; Z87.891 Personal history of nicotine dependence
CPT/HCPCS: 59025; 59050; 85025; 85461; 86780; 86850; 86900; 86901; 99221; J7030; J7040; J7120; G0378; J2790